=== PATIENT | female | born 1970 | race Asian ===

== ENCOUNTER 2021-01-25 10:17 | Outpatient (CLI) | payer OTHER | END 2021-01-25 10:18 | disposition home or self-care (01) | LOC: RT 10:17 | PROVIDERS: ATTEND Family Medicine | DX: R06.00 Dyspnea, unspecified (principal) | CPT/HCPCS: 94010; 94729 ==

== ENCOUNTER 2024-05-11 13:44 | Outpatient (CLI) | payer OTHER | END 2024-05-11 23:59 | disposition short-term general hospital (02) | LOC: EMS 13:44 | PROVIDERS: ATTEND Emergency Medicine | DX: R42 Dizziness and giddiness (principal); R45.89 Other symptoms and signs involving emotional state | CPT/HCPCS: A0425; A0429 ==